=== PATIENT | female | born 1935 | race Hispanic/Latino ===

== ENCOUNTER 2017-09-20 19:58 | Emergency (ER) | payer OTHER ==
[2017-09-20 20:55] LABS: APPEARANCE,URINE Clear (CLEAR); BILIRUBIN,URINE Negative (NEGATIVE); COLOR,URINE Yellow (YELLOW); GLUCOSE, URINE (UA) Negative (NEGATIVE); KETONES,URINE Negative (NEGATIVE); LEUKOCYTE ESTERASE ,URINE Small (NEGATIVE); NITRATE,URINE Negative (NEGATIVE); OCCULT BLOOD,URINE Negative (NEGATIVE); PH,URINE 7.5 (5.0-8.0); PROTEIN,URINE Negative (NEGATIVE); UROBILINOGEN,URINE 0.2 mg/dL (0.2-1.0)
[2017-09-20 21:15] LABS: SQUAMOUS EPITHELIAL CELL,UR 0-2 /LPF (0-2)
[2017-09-20 21:17] LABS: BACTERIA,URINE Rare /HPF (None Seen); MUCUS,URINE None Seen LPF (None Seen); RBC,URINE 0-1 /HPF (0-1); WBC,URINE 0-1 /HPF (0-1)
[2017-09-20 21:50] LABS: BASOPHILS % (AUTO) 0.6 % (0.0-5.0); EOSINOPHILS % (AUTO) 0.6 % (0.0-8.0); HEMATOCRIT 35.6 % (36-48); LYMPHOCYTES % (AUTO) 22.8 % (21.0-51.0); MEAN CORPUSCULAR HEMOGLOBIN 32.1 pg (27.0-33.0); MEAN CORPUSCULAR HGB CONC 34.9 g/dL (32.0-36.0); MONOCYTES % (AUTO) 6.5 % (3.0-13.0); NEUTROPHILS % (AUTO) 69.5 % (40.0-77.0); PLATELET COUNT (AUTO) 226 K/uL (130-400); RED BLOOD CELL COUNT(AUTO) 3.87 MIL/uL (4.00-5.50); RED CELL DISTRIBUTION WIDTH 13.2 % (11.0-15.5); WHITE BLOOD COUNT (AUTO) 7.2 K/uL (4.8-10.8)
[2017-09-20 22:00] LABS: CREATININE 0.7 mg/dL (0.5-1.5); POTASSIUM 3.4 mmol/L (3.5-5.1)
[2017-09-20 22:13] LABS: ALBUMIN 3.5 g/dL (3.5-5.0); BILIRUBIN,TOTAL 0.5 mg/dL (0.2-1.0); MAGNESIUM 2.1 mg/dL (1.80-2.40); THYROID STIMULATING HORMONE 2.77 uIU/mL (0.36-3.74); TOTAL PROTEIN, SERUM 7.3 g/dL (6.0-8.3)
[2017-09-20] MEDS ORDERED: LORAZEPAM 1 MG TABLET ONE (22:23)
== END 2017-09-20 23:39 | disposition home or self-care (01) ==
LOC: EDH 19:58
DX: F41.1 Generalized anxiety disorder (principal); I10 Essential (primary) hypertension; R20.2 Paresthesia of skin; R53.1 Weakness; E11.9 Type 2 diabetes mellitus without complications; E78.5 Hyperlipidemia, unspecified; Z90.49 Acquired absence of other specified parts of digestive tract
CPT/HCPCS: 36415; 80053; 81001; 83735; 84443; 85025; 93005

== ENCOUNTER → 2017-09-29 | Outpatient (CLI) | payer OTHER ==
[~2017-09-29] MED LIST: REGADENOSON 0.4 MG/5 ML PF SYG IVP ONE; REGADENOSON 0.4 MG/5 ML PF SYG IVP SCH
== END | disposition home or self-care (01) ==
LOC: SHCH 07:50
PROVIDERS: ATTEND Internal Medicine Cardiovascular Disease
DX: I25.10 Atherosclerotic heart disease of native coronary artery without angina pectoris (principal)
CPT/HCPCS: 78452; 93017; 96374; A9500 ×2; J2785

== ENCOUNTER → 2017-10-11 | Outpatient (CLI) | payer OTHER | END | disposition home or self-care (01) | LOC: SHCH 14:11 | PROVIDERS: ATTEND Internal Medicine Cardiovascular Disease | DX: I87.2 Venous insufficiency (chronic) (peripheral) (principal) | CPT/HCPCS: 93970 ==

== ENCOUNTER → 2020-06-05 | Outpatient (CLI) | payer OTHER | END | disposition home or self-care (01) | LOC: SHCH 15:30 | PROVIDERS: ATTEND Internal Medicine Cardiovascular Disease | DX: I35.1 Nonrheumatic aortic (valve) insufficiency (principal); R01.1 Cardiac murmur, unspecified; R06.09 Other forms of dyspnea | CPT/HCPCS: 93306 ==

== ENCOUNTER 2020-08-26 20:04 | Observation (INO) | payer OTHER ==
[2020-08-26] MEDS ORDERED: ACETAMINOPHEN 325 MG TAB ONE (20:33)
[2020-08-26 21:13] LABS: BASOPHILS % (AUTO) 0.3 % (0.0-5.0); HEMATOCRIT 40.8 % (36-48); LYMPHOCYTES % (AUTO) 20.5 % (21.0-51.0); MEAN CORPUSCULAR HEMOGLOBIN 30.6 pg (27.0-33.0); MEAN CORPUSCULAR HGB CONC 33.8 g/dL (32.0-36.0); MEAN CORPUSCULAR VOLUME 90.5 fL (79-99); MONOCYTES % (AUTO) 7.3 % (3.0-13.0); NEUTROPHILS % (AUTO) 71.6 % (40.0-77.0); PLATELET COUNT (AUTO) 137 K/uL (130-400); RED BLOOD CELL COUNT(AUTO) 4.51 MIL/uL (4.00-5.50); RED CELL DISTRIBUTION WIDTH 13.7 % (11.0-15.5); WHITE BLOOD COUNT (AUTO) 3.7 K/uL (4.8-10.8)
[2020-08-26 21:35] LABS: INR 0.96 (0.85-1.15); PROTHROMBIN TIME 10.3 SEC (9.6-11.6)
[2020-08-26 21:36] LABS: PARTIAL THROMBOPLASTIN TIME 25.7 SEC (26.3-35.5)
[2020-08-26 21:37] LABS: B-TYPE NATRIURETIC PEPTIDE 48 pg/mL (0-100)
[2020-08-26 21:40] LABS: ABG HCO3 25.7 mmol/L (21.0-28.0); ABG OXYGEN SATURATION 95.9 % (95.0-99.0); ABG PCO2 34 mmHg (32-45)
[2020-08-26 21:42] LABS: ALBUMIN 3.6 g/dL (3.5-5.0); BILIRUBIN,TOTAL 0.5 mg/dL (0.2-1.0); CREATININE 0.7 mg/dL (0.5-1.5)
[2020-08-26 21:47] LABS: POTASSIUM 2.7 mmol/L (3.5-5.1)
[2020-08-26] MEDS ORDERED: ALBUTEROL INHALER 90MCG/INH IH ONE (22:45)
[2020-08-26] MEDS ORDERED: POTASSIUM BICARB/CIT AC 25 MEQ TABLET.EFF ONE (22:46)
[2020-08-26] MEDS ORDERED: ASPIRIN 325MG EC TAB 325 MG TABLET.DR PO ONE (22:46)
[2020-08-26] MEDS ORDERED: NITROGLYCERIN 1GM/1 INCH PACKET TD ONE (22:47)
[2020-08-26 23:21] LABS: BILIRUBIN,URINE Negative (NEGATIVE); COLOR,URINE Yellow (YELLOW); GLUCOSE, URINE (UA) Negative (NEGATIVE); KETONES,URINE >=160 mg/dL (NEGATIVE); LEUKOCYTE ESTERASE ,URINE Small (NEGATIVE); NITRATE,URINE Negative (NEGATIVE); OCCULT BLOOD,URINE Nonhemolyzed Trace (NEGATIVE); PROTEIN,URINE POS 1+ mg/dL (NEGATIVE)
[2020-08-26 23:28] LABS: APPEARANCE,URINE SLIGHTLY CLOUDY (CLEAR)
[2020-08-26 23:34] LABS: BACTERIA,URINE Few /HPF (None Seen); RBC,URINE 0-1 /HPF (0-1); WBC,URINE 0-1 /HPF (0-1)
[2020-08-27] MEDS ORDERED: AZITHROMYCIN 500MG+NS 250ML 250 ML IV ONE (01:06)
[2020-08-27] MEDS ORDERED: METHYLPREDNISOLONE SOD SUCC 40MG/ML 1ML ONE ×2 (01:06→14:43)
[2020-08-27] MEDS ORDERED: FUROSEMIDE 10 MG/ML 4ML VIAL ONE (01:06)
[2020-08-27] MEDS ORDERED: ENOXAPARIN SODIUM 30 MG/0.3 ML SQ ONE ×2 (01:06→08:26)
[2020-08-27] MEDS ORDERED: CEFTRIAXONE SODIUM 1 GM ONE ×2 (01:07→11:51)
[2020-08-27] MEDS ORDERED: IOHEXOL 350 MG/ML 100ML INFUS..BTL IV ONE (02:36)
[2020-08-27] MEDS ORDERED: DEXTROSE 50%-WATER 50 ML DISP.SYRIN IV PRN (04:00)
[2020-08-27] MEDS ORDERED: GLUCAGON 1MG KIT 1 MG ML IM PRN (04:00)
[2020-08-27] MEDS ORDERED: FUROSEMIDE 10 MG/ML 4ML VIAL IVP SCH (06:00)
[2020-08-27] MEDS ORDERED: METHYLPREDNISOLONE SOD SUCC 40MG/ML 1ML IVP SCH (06:00)
[2020-08-27] MEDS: NITROGLYCERIN 1GM/1 INCH PACKET TD SCH ×4 (06:00→23:48)
[2020-08-27] MEDS: INSULIN R PO SS2 SQ SCH ×4 (07:30→21:04)
[2020-08-27] MEDS ORDERED: POTASSIUM BICARB/CIT AC 25 MEQ TABLET.EFF ONE ×3 (08:26→22:24)
[2020-08-27] MEDS ORDERED: INSULIN HUMULIN R 100 UNIT/ML 3ML ONE ×2 (08:27→11:52)
[2020-08-27] MEDS: POTASSIUM BICARB/CIT AC 25 MEQ TABLET.EFF PO SCH ×2 (09:00→21:21)
[2020-08-27] MEDS: ENOXAPARIN SODIUM 30 MG/0.3 ML SQ SCH (09:00)
[2020-08-27] MEDS: CEFTRIAXONE SODIUM 1 GM IVP SCH ×2 (12:00→23:26)
[2020-08-27 13:28] LABS: CARBON DIOXIDE 29 mmol/L (21-32); CHLORIDE 100 mmol/L (101-111); CREATINE KINASE, TOTAL 50 U/L (21-232); CREATININE 0.8 mg/dL (0.5-1.5); GLOMERULAR FILTR. RATE CALC 72 mL/min (>60); GLUCOSE,RANDOM 171 mg/dL (70-105); MYOGLOBIN 38 ng/mL (10-92); POTASSIUM 3.3 mmol/L (3.5-5.1); SODIUM SERUM 141 mmol/L (136-145); TROPONIN I < 0.04 ng/mL (0.00-0.06); UREA NITROGEN, BLOOD 10 mg/dL (7-18)
[2020-08-27] MEDS ORDERED: ACETAMINOPHEN 325 MG TAB PO PRN (16:45)
[2020-08-27] MEDS ORDERED: ACETAMINOPHEN 650 MG SUPPOSITORY RC PRN (16:45)
[2020-08-27] MEDS ORDERED: ONDANSETRON HCL 4 MG/2 ML VIAL IVP PRN (16:45)
[2020-08-27] MEDS ORDERED: ALBUTEROL INHALER 90MCG/INH IH PRN (16:45)
[2020-08-27] MEDS ORDERED: CLONIDINE HCL 0.1 MG TABLET PO PRN (16:45)
[2020-08-27 20:30] VITALS: BP 115/70
[2020-08-27 20:42] LABS: CREATINE KINASE, TOTAL 54 U/L (21-232); MYOGLOBIN 39 ng/mL (10-92); TROPONIN I < 0.04 ng/mL (0.00-0.06)
[2020-08-27] MEDS ORDERED: MAGNESIUM 2GM PREMIX 50ML 50 ML IV SCH (20:45)
[2020-08-27] MEDS ORDERED: POTASSIUM BICARB/CIT AC 25 MEQ TABLET.EFF PO SCH (22:45)
[2020-08-27] MEDS: AZITHROMYCIN 500MG+NS 250ML 250 ML IV SCH (23:26)
[2020-08-27] MEDS: TEMAZEPAM 15 MG CAPSULE PO PRN (23:27)
[2020-08-27 23:43] LABS: CREATINE KINASE, TOTAL 71 U/L (21-232); MYOGLOBIN 51 ng/mL (10-92)
[2020-08-28 00:04] LABS: TROPONIN I < 0.04 ng/mL (0.00-0.06)
[2020-08-28] MEDS ORDERED: CHOL2000 PO (00:45)
[2020-08-28] MEDS ORDERED: AZIT250T9 PO (00:45)
[2020-08-28] MEDS ORDERED: CYAN25002 SL (00:45)
[2020-08-28] MEDS ORDERED: ASCO500C18 PO (00:45)
[2020-08-28] MEDS ORDERED: ZINC50TA64 PO (00:45)
[2020-08-28] MEDS ORDERED: MELA1TAB21 PO (00:45)
[2020-08-28 00:53] VITALS: BP 135/80
[2020-08-28 03:55] VITALS: BP 130/82
[2020-08-28 05:45] LABS: BASOPHILS % (AUTO) 0.2 % (0.0-5.0); HEMATOCRIT 36.9 % (36-48); LYMPHOCYTES % (AUTO) 18.8 % (21.0-51.0); MEAN CORPUSCULAR HGB CONC 32.8 g/dL (32.0-36.0); MEAN CORPUSCULAR VOLUME 91.3 fL (79-99); MONOCYTES % (AUTO) 6.8 % (3.0-13.0); NEUTROPHILS % (AUTO) 73.8 % (40.0-77.0); PLATELET COUNT (AUTO) 155 K/uL (130-400); RED BLOOD CELL COUNT(AUTO) 4.04 MIL/uL (4.00-5.50); RED CELL DISTRIBUTION WIDTH 13.8 % (11.0-15.5); WHITE BLOOD COUNT (AUTO) 4.6 K/uL (4.8-10.8)
[2020-08-28] MEDS: NITROGLYCERIN 1GM/1 INCH PACKET TD SCH ×3 (05:59→17:07)
[2020-08-28 06:12] LABS: HEMOGLOBIN A1C 6.1 % (4.0-6.0)
[2020-08-28 06:20] LABS: B-TYPE NATRIURETIC PEPTIDE 79 pg/mL (0-100)
[2020-08-28 06:40] LABS: CREATININE 0.6 mg/dL (0.5-1.5); POTASSIUM 3.9 mmol/L (3.5-5.1); THYROID STIMULATING HORMONE 0.23 uIU/mL (0.36-3.74)
[2020-08-28] MEDS: INSULIN R PO SS2 SQ SCH ×4 (06:58→21:03)
[2020-08-28] MEDS: PREDNISONE 20 MG TABLET PO SCH (08:48)
[2020-08-28] MEDS: ASPIRIN 81MG TAB.CHEW PO SCH (08:48)
[2020-08-28] MEDS: ENOXAPARIN SODIUM 30 MG/0.3 ML SQ SCH (08:50)
[2020-08-28] MEDS ORDERED: AZITHROMYCIN 500MG+NS 250ML IV SCH (09:00)
[2020-08-28] MEDS ORDERED: CEFTRIAXONE SODIUM 1 GM IVP SCH (09:00)
[2020-08-28] MEDS: POTASSIUM BICARB/CIT AC 25 MEQ TABLET.EFF PO SCH ×2 (09:09→20:57)
[2020-08-28 10:25] VITALS: BP 112/70
[2020-08-28 12:00] VITALS: BP 134/75
[2020-08-28] MEDS ORDERED: ASPI-1197 PO (14:58)
[2020-08-28] MEDS ORDERED: DEXA6TAB7 PO (14:58)
[2020-08-28] MEDS ORDERED: AZIT500T4 PO (14:58)
[2020-08-28 16:08] VITALS: BP 134/75
[2020-08-28 19:00] VITALS: BP 116/63
[2020-08-28] MEDS: TEMAZEPAM 15 MG CAPSULE PO PRN (22:16)
[2020-08-29] VITALS: BP_SYST 115; BP_SYST 116; BP_DIAS 65; BP_DIAS 71
[2020-08-29] MEDS: CEFTRIAXONE SODIUM 1 GM IVP SCH ×3 (00:05→13:35)
[2020-08-29] MEDS: AZITHROMYCIN 500MG+NS 250ML 250 ML IV SCH (00:15)
[2020-08-29 03:43] VITALS: BP 138/75
[2020-08-29] MEDS: INSULIN R PO SS2 SQ SCH ×3 (07:30→16:30)
[2020-08-29 08:00] VITALS: BP 135/70
[2020-08-29] MEDS: ASPIRIN 81MG TAB.CHEW PO SCH (10:17)
[2020-08-29] MEDS: PREDNISONE 20 MG TABLET PO SCH (10:17)
[2020-08-29] MEDS: POTASSIUM BICARB/CIT AC 25 MEQ TABLET.EFF PO SCH (10:18)
[2020-08-29] MEDS: ENOXAPARIN SODIUM 30 MG/0.3 ML SQ SCH (10:20)
[2020-08-29 12:00] VITALS: BP 139/86
[2020-08-29] MEDS: NITROGLYCERIN 1GM/1 INCH PACKET TD SCH ×2 (12:00→18:00)
[2020-08-29 16:00] VITALS: BP 138/74
== END 2020-08-30 01:06 | disposition home or self-care (01) ==
LOC: EDH 20:04 → EDHIP 23:20 → 4AH 08-27 23:10
PROVIDERS: ADMIT Internal Medicine Critical Care Medicine; ATTEND Internal Medicine Critical Care Medicine
DX: U07.1 COVID-19 (principal); J12.82 Pneumonia due to coronavirus disease 2019; R94.31 Abnormal electrocardiogram [ECG] [EKG]; I11.0 Hypertensive heart disease with heart failure; I50.9 Heart failure, unspecified; E11.65 Type 2 diabetes mellitus with hyperglycemia; I25.10 Atherosclerotic heart disease of native coronary artery without angina pectoris; F41.9 Anxiety disorder, unspecified; R53.1 Weakness; R11.0 Nausea; E87.6 Hypokalemia; M19.90 Unspecified osteoarthritis, unspecified site; Z86.73 Personal history of transient ischemic attack (TIA), and cerebral infarction without residual deficits; Z79.4 Long term (current) use of insulin; Z79.899 Other long term (current) drug therapy
CPT/HCPCS: 36415 ×3; 36600; 71045; 71275; 80048 ×2; 80053; 81001; 82550 ×4; 82803; 82948 ×10; 83036; 83605 ×2; 83735; 83874 ×3; 83880 ×2; 84132; 84145; 84443; 84484 ×4; 85025 ×2; 85378; 85610; 85730; 87040 ×2; 93005; 94760 ×4; 96365; 96366 ×2; 96372 ×3; 96375; 96376; 99285; G0378 ×74; J0456 ×3; J0696 ×5; J1650 ×4; J1815 ×5; J1940; J2920 ×2; Q9967